=== PATIENT | female | born 1990 | race Hispanic/Latino ===

== ENCOUNTER 2017-06-16 07:28 | Emergency (ER) | payer OTHER ==
--- NOTE | 2017-06-16 08:58 | XRay Report ---
LEFT SHOULDER, ONE VIEW History: Shoulder pain. Findings: An anterior, inferior dislocation is identified at the left glenohumeral joint. No obvious associated fracture. The remainder of the examination is within normal limits. Impression: Anterior, inferior dislocation at the left glenohumeral joint.
--- NOTE | 2017-06-16 08:58 | XRay Report ---
ROUTINE CHEST, TWO VIEWS: HISTORY: chest pain. The trachea, heart, mediastinal contour, and lung mendoza are unremarkable. Dislocation at the left shoulder is again noted, please refer to the left shoulder report from the same day. IMPRESSION: Left shoulder dislocation. Normal chest.
--- NOTE | 2017-06-16 10:51 | Emergency Department Report ---
ED Upper Extremity Inj HPI - General Chief Complaint: Extremity Injury, Upper Stated Complaint: L SHOULDER DISLOCATED Time Seen by Provider: 06/16/17 10:43 Source: family, EMS Mode of arrival: Stretcher Limitations: No Limitations - History of Present Illness Initial Comments: Patient is 27 years old female history of recurrent shoulder dislocation mainly left side. She stated that she fell this morning and immediately she felt a lot her left shoulder is dislocated. After she had had a left shoulder x-ray done here in the ER patient felt that her left shoulder is back in place. Patient denied any other injury. MD Complaint: Injury to:: left, shoulder -: Sudden Other Extremity Injury: Shoulder: Left Other Injuries: none Place: home Severity scale (0 -10): 6 Worsens With: movement of extremity Context: fall - Related Data Allergies Allergy/AdvReac Type Severity Reaction Status Date / Time No Known Allergies Allergy Unverified 06/16/17 07:37 ED Review of Systems ROS: Stated complaint: L SHOULDER DISLOCATED Other details as noted in HPI Comment: All other systems reviewed and negative Constitutional: denies: chills, fever Respiratory: denies: cough, shortness of breath, SOB with exertion Cardiovascular: denies: chest pain, palpitations Gastrointestinal: denies: abdominal pain, nausea, vomiting Musculoskeletal: denies: back pain Neurological: denies: headache, weakness, numbness, paresthesias ED Past Medical Hx - Past Medical History Previous Medical History?: No - Surgical History Past Surgical History?: No - Social History Smoking Status: Never Smoker Substance Use Type: None ED Physical Exam - General Limitations: No Limitations General appearance: alert, in no apparent distress - Head Head exam: Present: atraumatic, normocephalic, normal inspection - Eye Eye exam: Present: normal appearance, PERRL - ENT ENT exam: Present: normal exam - Neck Neck exam: Present: normal inspection, full ROM. Absent: tenderness, meningismus, lymphadenopathy, thyromegaly - Respiratory Respiratory exam: Present: normal lung sounds bilaterally. Absent: respiratory distress, wheezes, chest wall tenderness - Cardiovascular Cardiovascular Exam: Present: regular rate, normal rhythm, normal heart sounds - GI/Abdominal GI/Abdominal exam: Present: soft. Absent: distended, tenderness, guarding, rebound, rigid, organomegaly, mass, bruit, pulsatile mass, hernia - Expanded Upper Extremity Exam Left Shoulder Exam: Present: normal inspection, full ROM. Absent: tenderness, swelling, abrasion, laceration, ecchymosis, deformity, crepidus, dislocation, erythema, tenderness over AC joint, other ED Course Vital Signs 06/16/17 07:30 Temperature 98.3 F Pulse Rate 96 H Respiratory 18 Rate Blood Pressure 133/79 O2 Sat by Pulse 98 Oximetry - Reevaluation(s) Reevaluation #1: 06/16/17 11:37 Patient reexamine, patient stated that her pain is completely resolved she's had a full range of motion left shoulder, left arm sling applied and patient is to follow-up with her primary care physician for possible referral for orthopedics.. Critical care attestation.: If time is entered above; I have spent that time in minutes in the direct care of this critically ill patient, excluding procedure time. ED Disposition Clinical Impression: Dislocation of left shoulder joint Disposition: DC-01 TO HOME OR SELFCARE Is pt being admited?: No Condition: Stable Instructions: Shoulder Dislocation (ED) Referrals: PRIMARY CARE, [Primary Care Provider] - 3-5 Days
--- NOTE | 2017-06-16 11:21 | XRay Report ---
LEFT SHOULDER, ONE VIEW 1050 hours History: Postreduction film, dislocation, pain. Findings: The anterior, inferior dislocation at the left glenohumeral joint has been partially reduced since earlier today at 0836 hours. There appears to be mild inferior subluxation remaining at the left glenohumeral joint on this limited single AP view. This may indicate a left shoulder joint effusion. No obvious associated fracture. Impression: Apparent partial reduction of the left shoulder dislocation. Please see above and correlate with the image and the patient.
[2017-06-16 11:58] VITALS: BP 138/84
== END 2017-06-16 11:59 | disposition home or self-care (01) ==
LOC: ED 07:28
DX: S43.005A Unspecified dislocation of left shoulder joint, initial encounter (principal); W18.30XA Fall on same level, unspecified, initial encounter; Y93.89 Activity, other specified; Y92.89 Other specified places as the place of occurrence of the external cause; Y99.8 Other external cause status
CPT/HCPCS: 71010; 99284